=== PATIENT | female | born 1970 | race African-American/Black ===

== ENCOUNTER 2019-06-14 19:58 | Inpatient (IN) ==
[2019-06-14] MEDS ORDERED: BENADRYL IV ONE (20:06)
[2019-06-14] MEDS ORDERED: EPINEPHRINE IM ONE (20:06)
[2019-06-14] MEDS ORDERED: SOLU-MEDROL IV ONE (20:07)
[2019-06-14 20:44] LABS: BASO# 0.02 X1000 (0.0-0.2); BASO% 0.3 % (0.0-0.8); EOS# 0.11 X1000 (0.0-0.7); EOS% 1.6 % (0.0-10.0); HEMATOCRIT 39.1 % (37.0-47.0); HEMOGLOBIN 13.4 g/dL (12.0-16.0); IMM GRAN# 0.02 X1000 (0.0-0.04); IMM GRAN% 0.3 % (0.0-0.5); LYMPH# 2.96 X1000 (1.2-3.4); LYMPH% 42.1 % (20.5-51.1); MCH 29.7 PG (27-31); MCHC 34.3 g/dL (33-37); MCV 86.7 FL (81-99); MONO# 0.48 X1000 (0.11-0.59); MONO% 6.8 % (1.7-9.3); MPV 11.9 FL (7.4-10.4); NEUT# 3.44 X1000 (1.4-6.5); NEUT% 48.9 % (42.2-75.2); PLT 193 X1000 (130-400); RBC 4.51 XMIL (4.2-5.4); RDW 13.2 % (11.5-14.5); WBC 7.03 X1000 (4.8-10.8)
[2019-06-14 21:04] LABS: BILIRUBIN URINE NEGATIVE (NEGATIVE); BLOOD URINE NEGATIVE (NEGATIVE); CLARITY CLEAR (CLEAR); COLOR YELLOW; KETONE URINE TRACE mg/dL (NEGATIVE); LEUKOCYTES URINE TRACE (NEGATIVE); NITRITE URINE NEGATIVE (NEGATIVE); PH URINE 6.5; PROTEIN URINE TRACE mg/dL (NEGATIVE); UROBILINOGEN URINE NORMAL
[2019-06-14] MEDS ORDERED: APRESOLINE IV ONE (21:09)
--- NOTE | 2019-06-14 21:10 | PROVIDER DOCUMENTATION ---
This chart was entered by Malena Biswas Scribe, acting as scribe for Garrison Rosado MD. HPI-General Adult - General Chief Complaint: Tongue Swelling Stated Complaint: ALLERGIC REACTION Time Seen by Provider: 06/14/19 20:05 Source: patient Allergies/Adverse Reactions: Patient Allergies Allergy/AdvReac Type Severity Reaction Status Date / Time No Known Allergies Allergy Verified 06/14/19 20:22 Home Medications: Home Medication List Medication Instructions Recorded Confirmed Last Taken Type Benazepril HCl 1 tab PO DAILY 06/14/19 06/14/19 Unknown History Hydrochlorothiazide 1 tab PO DAILY 06/14/19 06/14/19 Unknown History Meloxicam [Mobic] 15 mg PO DAILY 06/14/19 06/14/19 Unknown History Metformin HCl 1 tab PO DAILY 06/14/19 06/14/19 Unknown History Methocarbamol [Robaxin-750] 1 tab PO Q8H PRN PRN 06/14/19 06/14/19 Unknown History - History of Present Illness -Gen Adult Nature of Presenting Problems: Pt is 48/F presenting to ED w/ swollen tongue that started about 3pm today. She has no trouble breathing. Does take Benozepril. Location of Pain/Injury: reports: mouth Pain Radiation: reports: no radiation Quality of Pain: reports: none Severity: reports: moderate Onset/Duration: reports: 4-6 hours ago Timing: reports: still present Context/Activities at Onset: reports: none Modifying Factors: improves with: nothing Associated Symptoms: reports: denies symptoms. denies: nausea, shortness of breath, vomiting Similar Symptoms Previously?: No Recently seen or treated by another doctor?: No Review of Systems - Adult - REVIEW OF SYSTEMS - ADULT Constitutional: reports: no symptoms reported. denies: chills, fever Eyes: reports: no symptoms reported Ears, Nose, Mouth & Throat: reports: mouth swelling Cardiovascular: reports: no symptoms reported Respiratory: reports: no symptoms reported. denies: cough, shortness of breath, wheezing Gastrointestinal: reports: no symptoms reported Genitourinary: reports: no symptoms reported Musculoskeletal: reports: no symptoms reported. denies: bone pain, back pain Integumentary: reports: no symptoms reported Neurological: reports: no symptoms reported. denies: dizziness/vertigo, headache/migraines Psychiatric: reports: no symptoms reported Endocrine: reports: no symptoms reported Hematologic/Lymphatic: reports: no symptoms reported Allergic/Immunologic: reports: no symptoms reported All Other Systems: Reviewed and Negative Past History - Adult - PAST MEDICAL HISTORY-ADULT Review of Records: reports: Old Records Reviewed, Nursing Assessment Review, Medications Reviewed, Social history reviewed & non-contributory. Major Childhood Illnesses: reports: denies history Cardiovascular: reports: HTN Respiratory: reports: denies history Gastrointestinal: reports: denies history Obstetrical/Gynecological: reports: denies history Genitourinary: reports: denies history Musculoskeletal: reports: denies history Neurological: reports: denies history Endocrine/Immune: reports: denies history Other Conditions: reports: denies history - PRIOR SURGERIES/PROCEDURES Surgical/Procedure History: reports: hysterectomy, - IMMUNIZATION STATUS Childhood Immunizations: See Nurse Assessment Flu Vaccine: See Nurse Assessment - FAMILY HISTORY Family History: reviewed, not pertinent - SOCIAL HISTORY Smoking: denies, non-smoker Substance Use: none/never Alcohol Use Frequency: never Living Situation: family Physical Exam-General - PHYSICAL EXAM-ADULT Initial Vital Signs Reviewed: Yes - CONSTITUTIONAL General Appearance: appears well, alert, moderate distress - EYES Eyes: PERRL/EOMI, pink conjunctivae - HEAD, EARS, NOSE, MOUTH & THROAT HENMT: moist mucous membranes, other (tongue swollen primarily on L side. No difficulty breathing, no airway blocking) - RESPIRATORY Respiratory: lungs clear - CARDIOVASCULAR Cardiovascular: regular rate, rhythm - MUSCULOSKELETAL Back Exam: normal inspection Extremity: normal range of motion, non-tender, normal gait, normal inspection - SKIN Integumentary: normal color, warm/dry - NEUROLOGIC Neurologic: grossly normal - PSYCHIATRIC Psych/Mental Status: normal mood/affect, normal thought content, normal thought process, oriented x 3 Progress - PLAN OF CARE/RESULTS Progress/Plan/Lab Results: Vital Signs - 8 hr 06/14/19 20:01 Temperature 98 F Pulse Rate 84 Respiratory Rate 20 Blood Pressure 208/128 O2 Sat by Pulse Oximetry 97 Bedside Urine ED: Urine Bedside Start: 06/14/19 20:07 Freq: ORDERED Status: Inactive Protocol: Activity Type Activity Date Activity User E-Sign Co-Sign Detail Recorded Client Recorded Date Recorded By Edit Status 06/14/19 20:10 [id number] Active=>Inactive [id number] 06/14/19 20:10 [id number] Orders Category Date Time Status CBC WITH ELECTRONIC DIFF [HEME] Stat Lab 06/14/19 20:07 Uncollected COMPREHENSIVE METABOLIC PANEL [CHEM] Stat Lab 06/14/19 20:[address] W/POSS RFLX CULT [URINALYSIS] Stat Lab 06/14/19 20:07 Uncollected Diphenhydramine [Benadryl] Med 06/14/19 20:06 Discontinued 25 mg IV NOW ONE Epinephrine Med 06/14/19 20:06 Discontinued 0.3 mg IM NOW ONE Methylprednisolone Sod Succ [Solu-Medrol] Med 06/14/19 20:07 Discontinued 125 mg IV NOW ONE At recheck (2115), pt had no change in tongue swelling. Reports no problems breathing or swallowing. No signs of distress. Result Diagrams: 06/14/19 20:03 - CONSULTS/PCP/HOSPITALIST Notification #1 *Consult/PCP/Hospitalist*: Dr. Trotter Time Discussed: 20:56 Consult Disposition: Admit Departure - Departure Date of Disposition Decision: 06/14/19 Time of Disposition Decision: 21:08 DIAGNOSIS: Angioedema, HTN (hypertension) Disposition: ADMITTED INPATIENT 09 Certified Medical Emergency: Emergent Condition: Fair Referrals and Follow-Ups: Colette Dozier CRNP [Primary Care Provider] - - Critical Care Note This patient required my direct & personal management of CC.: No Attestation - Physician/ ARCHIE Attestation Patient care was provided by Advanced Practice Provider:: No The physician spent face to face time with patient:: Yes Advanced Practice Provider documentation review:: Supervising physician onsite and consulted in the evaluation and care of this patient. The physician did have a face to face encounter with the patient. This chart was documented by the indicated scribe, (Malena Biswas, Abdiaziz) and accurately reflects the services I performed and decisions made by me, Garrison Rosado MD, as attested by the provider's signature.
[2019-06-14 21:15] LABS: URINE BACTERIA 1+ /HFP; URINE CAST NONE SEEN /LPF; URINE CRYSTAL NONE SEEN /HPF; URINE EPITHELIAL CELLS <10 /HPF (<10); URINE SOURCE CLEAN CATCH; URINE WBC <10 /HPF (<10); URINE YEAST NONE SEEN /HPF
[2019-06-14] MEDS: SOLU-MEDROL IV SCH (21:15)
[2019-06-14 21:20] LABS: AGAP 14; ALBUMIN 4.7 g/dL (3.5-5.0); ALKALINE PHOSPHATASE 91 U/L (32-104); BUN 13 mg/dL (8-22); CALCIUM 10.1 mg/dL (8.8-10.2); CHLORIDE 98 mmol/L (98-107); COSMO 282; CREATININE 0.6 mg/dL (0.5-0.9); ESTIMATED GFR > 60; GLUCOSE 312 mg/dL (70-104); GOT 28 U/L (10-30); GPT 22 U/L (10-36); POTASSIUM 4.4 mmol/L (3.5-5.1); SODIUM 135 mmol/L (136-145); TCO2 23 mmol/L (25-35); TOTAL PROTEIN 8.4 g/dL (6.3-8.3)
[2019-06-14] MEDS ORDERED: TYLENOL PO PRN (22:26)
[2019-06-14] MEDS ORDERED: LABETALOL IV PRN (22:28)
[2019-06-14] MEDS: ROBAXIN PO SCH (22:51)
[2019-06-15] MEDS: NORVASC PO SCH ×3 (01:17→10:24)
[2019-06-15] MEDS: BENADRYL IV SCH ×3 (01:17→10:22)
[2019-06-15] MEDS: SOLU-MEDROL IV SCH (06:07)
[2019-06-15] MEDS ORDERED: ROBAXIN PO PRN (08:39)
[2019-06-15] MEDS ORDERED: MOBIC PO SCH (09:00)
[2019-06-15] MEDS: HYDROCHLOROTHIAZIDE PO SCH ×2 (10:10→10:23)
[2019-06-15] MEDS: MOBIC PO SCH ×2 (10:11→10:22)
[2019-06-15] MEDS: ROBAXIN PO SCH (10:24)
[2019-06-15] MEDS ORDERED: HUMALOG (PARKWAY) SUBQ SCH (11:00)
--- NOTE | 2019-06-15 11:20 | HISTORY AND PHYSICAL ---
PRIMARY CARE PROVIDER: ROSALIND Dahl. CHIEF COMPLAINT: Tongue swelling. HISTORY OF PRESENT ILLNESS: Ms. Bulmaro Le is a 48-year-old female, with a medical history of diabetes mellitus type 2, likely uncontrolled, hypertension, hyperlipidemia, and noncompliance with medications at times. Apparently she had been started on benazepril a few months ago, and yesterday around 3 o'clock she noticed that she had swelling on one side of her tongue. There were no other associated symptoms. She had a little bit of shortness of breath, but it resolved. She presented to the emergency department where she was treated for high risk anaphylaxis secondary to benazepril that could cause angioedema. The symptoms never progressed, they actually resolved. She is stable enough for discharge home so we will do a separate discharge summary. Vitals are stable. PAST MEDICAL HISTORY: 1. Diabetes mellitus, type 2. 2. Hypertension. 3. Hyperlipidemia. 4. Medication noncompliance with her diabetic medications. SURGICAL HISTORY: 1. section. 2. Hysterectomy. 3. Breast reduction. SOCIAL HISTORY: . Walks. Does not smoke, never smoked. Drinks a glass of wine about twice year. No illicit drug use. FAMILY HISTORY: Mother's side of the family - grandmother with diabetes and hypertension, throat cancer. Father's side of the family has hypertension, and she had a grandfather that had melanoma. ALLERGIES: Benazepril causes angioedema. HOME MEDICATIONS: 1. Hydrochlorothiazide 25 mg p.o. daily. 2. Metformin 1000 mg p.o. daily, but the patient actually reported 3 times a day, and the prescription actually says 1000 mg twice a day. 3. Mobic 15 mg p.o. daily. 4. Robaxin 750 mg 1 tablet p.o. every at 8 hours p.r.n. 5. Medrol Dosepak added. 6. Norvasc 5 mg p.o. twice daily. REVIEW OF SYSTEMS: Fourteen point review of systems are complete and all were negative except those mentioned above in the HPI. PHYSICAL EXAMINATION: VITAL SIGNS: Temperature 98.3 degrees, heart rate 92, respiratory rate 19, blood pressure 139/67, O2 saturation 95% on room air. GENERAL: Ms. Bulmaro Le is a 48-year-old female. She is in no acute distress. She is able to answer questions appropriately. HEENT: Atraumatic, normocephalic. Pupils equal, round, and reactive to light. Extraocular movements intact. Mucous membranes are moist. There is no swelling. No signs or symptoms of angioedema. NECK: Trachea midline. CARDIOVASCULAR: S1, S2. Regular rate and rhythm. No rubs, gallops, murmurs. No lower extremity edema. +2 dorsalis and radial pulses. Negative JVD or carotid bruits. PULMONARY: Clear to auscultate bilateral breath sounds. No accessory muscle use or work of breathing noted. GI: Soft, nontender, nondistended. Positive bowel sounds x4. EXTREMITIES: Moves all extremities equally. Full range of motion. NEUROLOGIC: A and O x3. Follows commands. Sensory is intact. SKIN: Warm, dry, intact. LABORATORY DATA: White blood cells 7000, hemoglobin 13, hematocrit 39, platelet count 193,000. Sodium 135, potassium 4.4, BUN 13, creatinine 0.6, glucose 361. Calcium 10.1. Bilirubin 0.60. AST 28, ALT 22. Albumin 4.7. Urinalysis trace protein, trace white blood cells, 2+ glucose, 1+ bacteria. IMAGING: None. ASSESSMENT AND PLAN: 1. Angioedema secondary to benazepril. This has now been listed as an allergy. In the ER she received Solu-Medrol, Benadryl, and epinephrine. 2. Hypertension. They gave her hydralazine. She was initiated back on her home medications and she had p.r.n. labetalol, but that was not needed. Norvasc 5 mg p.o. twice a day along with her hydrochlorothiazide is what she will be on. 3. Diabetes mellitus, type 2, likely uncontrolled. Hemoglobin A1c back in 2014 was 6.4. She would have been started on a sliding scale insulin, but she is going to be discharged home and was educated on the importance of taking her metformin. Apparently, she has probably not been taking it very often, she is not very consistent with it. Diabetic diet. 4. Hyperlipidemia. Continue statin. 5. Deep venous thrombosis prophylaxis. SCDs. Dictated by ROSALIND Spear for Armand Velazquez MD Addendum: Patient seen and examined by myself. Agree with ROSALIND note. It reflects my assessment and plan. Patient is being admitted to hospital for angioedema so will monitor patient closely in ICU and continue with IV steroids and Benadryl IV. cc: ROSALIND Spear MD MTDAj
[2019-06-15 12:14] VITALS: BP 179/89
[2019-06-15] MEDS ORDERED: GLUCOPHAGE PO SCH (17:00)
--- NOTE | 2019-06-16 03:53 | DISCHARGE SUMMARY ---
ADMISSION DATE: 06/15/2019 DISCHARGE DATE: 06/15/2019 ADMISSION DIAGNOSES: 1. Angioedema secondary to benazepril. This has been discontinued. She has been started on amlodipine for blood pressure control instead. 2. Hypertension. Again, she is on hydrochlorothiazide, but the benazepril has been stopped and she will be on amlodipine instead. 3. Uncontrolled diabetes mellitus type 2, likely worsened over steroid injections. Patient educated on the importance of taking her home metformin. 4. Hyperlipidemia. Continue home medications. DISCHARGE DIAGNOSES: 1. Angioedema secondary to benazepril. This has been discontinued. She has been started on amlodipine for blood pressure control instead. 2. Hypertension. Again, she is on hydrochlorothiazide, but the benazepril has been stopped and she will be on amlodipine instead. 3. Uncontrolled diabetes mellitus type 2, likely worsened over steroid injections. Patient educated on the importance of taking her home metformin. 4. Hyperlipidemia. Continue home medications. HOSPITAL COURSE: Ms. Bulmaro Le is a 48-year-old female. She presented with swelling of the tongue. Had some mild shortness of breath at one point but that resolved. Received multiple medications in the ER. All symptoms resolved and she is being discharged home. DISCHARGE VITAL SIGNS: Temperature 98.3 degrees, heart rate 92, respiratory rate 19, blood pressure 139/67, O2 saturation 95% on room air. DISCHARGE DIET: Diabetic diet. DISCHARGE ACTIVITY: As tolerated. DISCHARGE MEDICATIONS: 1. Norvasc 5 mg p.o. twice daily. 2. Medrol Dosepak. 3. Robaxin 750 mg tablet p.o. every 8 hours p.r.n. 4. Mobic 15 mg p.o. daily. 5. Metformin 1000 mg p.o. twice daily. 6. Hydrochlorothiazide 25 mg p.o. daily. PHYSICIAN FOLLOWUP: Colette Dozier. DISCHARGE INSTRUCTIONS: Never take an NIRALI inhibitor again, anything that ends in -pril. If symptoms return, seek emergency medical treatment. DISCHARGE DISPOSITION: Home. Dictated by ROSALIND Separ for Armand Velazquez MD Addendum: patient seen and examined by myself. Agree with ROSALIND note. It reflects my assessment and plan. Patient is being discharged in stable condition. Will be seen by PCP in a week. cc: ROSALIND Spear MD MTDD
== END 2019-06-15 12:55 | disposition home or self-care (01) | DRG 916 ==
LOC: P.ED 19:58 → P.ICU 21:48
PROVIDERS: ATTEND Internal Medicine